=== PATIENT | female | born 1975 | race Caucasian/White ===

== ENCOUNTER 2017-12-24 09:00 | Outpatient (RCR) | payer OTHER | END 2017-12-24 09:30 | disposition home or self-care (01) | LOC: PT 09:00 | DX: S96.112D Strain of muscle and tendon of long extensor muscle of toe at ankle and foot level, left foot, subsequent encounter (principal); S46.011D Strain of muscle(s) and tendon(s) of the rotator cuff of right shoulder, subsequent encounter; M25.552 Pain in left hip; M25.562 Pain in left knee; W01.0XXD Fall on same level from slipping, tripping and stumbling without subsequent striking against object, subsequent encounter ==

== ENCOUNTER → 2018-01-18 | Outpatient (CLI) | payer OTHER ==
[2018-01-18 11:46] LABS: HEMATOCRIT 35.6 % (37.0-47.0); HEMOGLOBIN 11.9 g/dL (12.5-16.0); MEAN CELL VOLUME 84 fl (78-100); MEAN CORPUSCULAR HEMOGLOBIN 28 pg (27-31); MEAN CORPUSCULAR HGB CONC 33 g/dL (33-37); PLATELET COUNT 304 K/mm3 (130-400); RED BLOOD COUNT 4.23 M/mm3 (4.10-5.30); RED CELL DISTRIBUTION WIDTH 13.5 % (11.5-14.5); WHITE BLOOD COUNT 7.3 K/mm3 (4.8-10.8)
[2018-01-18 12:15] LABS: PH-URINE 6.5 (5.0 - 8.0); URINE APPEARANCE CLEAR; URINE BILIRUBIN NEGATIVE (NEGATIVE); URINE COLOR YELLOW; URINE GLUCOSE NEGATIVE (NEGATIVE); URINE KETONE NEGATIVE (NEGATIVE); URINE PROTEIN(semi-quant) TRACE mg/dL (NEGATIVE)
[2018-01-18 12:16] LABS: URINE BLOOD 250 ery/uL (NEGATIVE); URINE LEUKOCYTE ESTERASE NEGATIVE (NEGATIVE); URINE MUCUS PRESENT (NOT PRESENT); URINE NITRATE NEGATIVE (NEGATIVE); URINE UROBILINOGEN NORMAL (NORMAL)
[2018-01-18 12:27] LABS: ALBUMIN 3.5 g/dL (3.5-5.0); BUN/CREATININE RATIO 24.3 (6.0-26.0); CALCIUM 8.4 mg/dL (8.4-10.2); TOTAL BILIRUBIN 0.3 mg/dL (0.2-1.3); TOTAL PROTEIN 7.1 g/dL (6.3-8.2)
[2018-01-18 13:17] LABS: LYMPHOCYTE 25 % (20-51); MONOCYTE 8 % (3-10); NEUTROPHILS 64 % (42-75)
== END ==
LOC: LAB 11:31
PROVIDERS: Nurse Practitioner Family
DX: R60.9 Edema, unspecified (principal); R39.15 Urgency of urination

== ENCOUNTER 2018-05-09 13:30 | Outpatient (RCR) | payer OTHER | END 2018-05-15 | disposition home or self-care (01) | LOC: PT | DX: S92.025D Nondisplaced fracture of anterior process of left calcaneus, subsequent encounter for fracture with routine healing (principal); S86.812D Strain of other muscle(s) and tendon(s) at lower leg level, left leg, subsequent encounter ==

== ENCOUNTER 2018-07-29 11:00 | Outpatient (RCR) | payer OTHER | END 2018-08-15 | disposition home or self-care (01) | LOC: PT | DX: S92.025D Nondisplaced fracture of anterior process of left calcaneus, subsequent encounter for fracture with routine healing (principal); S86.919D Strain of unspecified muscle(s) and tendon(s) at lower leg level, unspecified leg, subsequent encounter; G57.92 Unspecified mononeuropathy of left lower limb ==

== ENCOUNTER 2018-11-11 11:00 | Outpatient (RCR) | payer OTHER | END 2018-11-11 11:30 | disposition home or self-care (01) | LOC: PT 11:00 | DX: G58.8 Other specified mononeuropathies (principal); M72.2 Plantar fascial fibromatosis ==

== ENCOUNTER 2019-06-10 07:41 | Emergency (ER) | payer OTHER ==
[~2019-06-10] VITALS: Ht 170.2 cm; Wt 118.3 kg
[2019-06-10] MEDS ORDERED: NEURONTIN300 M1 PO (08:04)
[2019-06-10] MEDS ORDERED: NEURONTIN300 MG/CAP PO (08:05)
[2019-06-10 08:14] LABS: EOS # 0.1 (0.04-0.40); EOS % 1.6 % (1.0-5.0); HEMATOCRIT 35.5 % (37.0-47.0); LYMPH# 1.6 (1.50-4.00); MEAN CELL VOLUME 85 fl (78-100); MEAN CORPUSCULAR HEMOGLOBIN 29 pg (27-31); MEAN CORPUSCULAR HGB CONC 34 g/dL (33-37); MEAN PLATELET VOLUME 10.8 fl (7.4-10.4); MONO # 0.8 (0.20-0.80); NEU # 4.2 (1.40-6.50); PLATELET COUNT 289 K/mm3 (130-400); RED BLOOD COUNT 4.18 M/mm3 (4.10-5.30); RED CELL DISTRIBUTION WIDTH 13.2 % (11.5-14.5); WHITE BLOOD COUNT 6.7 K/mm3 (4.8-10.8)
[2019-06-10 08:16] LABS: ALBUMIN 3.6 g/dL (3.5-5.0); POTASSIUM 3.9 mmol/L (3.5-5.1); SODIUM 139 mmol/L (136-145)
[2019-06-10 08:17] LABS: CALCIUM 8.3 mg/dL (8.3-10.5)
[2019-06-10 08:18] LABS: GLUCOSE 109 mg/dL (65-105); TOTAL PROTEIN 6.6 g/dL (6.4-8.3)
[2019-06-10 08:19] LABS: CARBON DIOXIDE 22 mmol/L (22-29)
[2019-06-10 08:20] LABS: TOTAL BILIRUBIN 0.8 mg/dL (0.2-1.2); URINE APPEARANCE HAZY; URINE BILIRUBIN NEGATIVE (NEGATIVE); URINE BLOOD 50 ery/uL (NEGATIVE); URINE COLOR YELLOW; URINE GLUCOSE NEGATIVE (NEGATIVE); URINE KETONE 2+ (NEGATIVE); URINE LEUKOCYTE ESTERASE NEGATIVE (NEGATIVE); URINE MUCUS PRESENT (NOT PRESENT); URINE NITRATE NEGATIVE (NEGATIVE); URINE PROTEIN(semi-quant) TRACE mg/dL (NEGATIVE); URINE UROBILINOGEN NORMAL (NORMAL)
[2019-06-10 08:23] LABS: AST-SGOT 13 U/L (5-34)
[2019-06-10 08:25] LABS: ALT/SGPT 15 U/L (0-55)
[2019-06-10 08:28] LABS: ALCOHOL IN-HOUSE < 10 mg/dL (<10)
[2019-06-10 08:50] LABS: TROPONIN-I < 0.03 ng/mL (<0.030)
[2019-06-10 10:37] VITALS: BP 135/84
== END 2019-06-10 10:50 | disposition home or self-care (01) ==
LOC: ED 07:41
PROVIDERS: Nurse Practitioner Primary Care
DX: F43.0 Acute stress reaction (principal)
CPT/HCPCS: J2405; J7030

== ENCOUNTER 2020-08-02 13:00 | Outpatient (RCR) | payer OTHER ==
[~2020-08-02 13:00] MED LIST: NEURONTIN300 M1 PO; NEURONTIN300 MG/CAP PO
== END 2020-08-02 13:30 | disposition home or self-care (01) ==
LOC: PT 13:00
DX: S46.811A Strain of other muscles, fascia and tendons at shoulder and upper arm level, right arm, initial encounter (principal)

== ENCOUNTER → 2022-05-08 | Outpatient (CLI) | payer BC ==
[2022-05-08 14:02] LABS: HEMATOCRIT 39.5 % (37.0-47.0); HEMOGLOBIN 12.9 g/dL (12.5-16.0); MEAN PLATELET VOLUME 10.8 fl (7.4-10.4); RED BLOOD COUNT 4.55 M/mm3 (4.10-5.30); RED CELL DISTRIBUTION WIDTH 12.8 % (11.5-14.5); WHITE BLOOD COUNT 8.6 K/mm3 (4.8-10.8)
[2022-05-08 14:10] LABS: ALBUMIN 3.7 g/dL (3.5-5.0)
[2022-05-08 14:11] LABS: CALCIUM 8.5 mg/dL (8.3-10.5)
[2022-05-08 14:13] LABS: TOTAL PROTEIN 6.9 g/dL (6.4-8.3)
[2022-05-08 14:14] LABS: TOTAL BILIRUBIN 0.4 mg/dL (0.2-1.2)
[2022-05-08 14:26] LABS: URINE APPEARANCE CLEAR; URINE BILIRUBIN NEGATIVE (NEGATIVE); URINE BLOOD 50 ery/uL (NEGATIVE); URINE COLOR YELLOW; URINE GLUCOSE NEGATIVE (NEGATIVE); URINE KETONE NEGATIVE (NEGATIVE); URINE NITRATE NEGATIVE (NEGATIVE); URINE PROTEIN(semi-quant) TRACE (NEGATIVE); URINE UROBILINOGEN NORMAL (NORMAL)
[2022-05-08 14:27] LABS: URINE LEUKOCYTE ESTERASE TRACE (NEGATIVE); URINE MUCUS PRESENT (NOT PRESENT)
== END ==
LOC: LAB 13:41
PROVIDERS: Family Medicine
DX: I10 Essential (primary) hypertension (principal)

== ENCOUNTER → 2022-11-27 | Outpatient (CLI) | payer OTHER | LOC: LAB 17:14 | DX: Z04.1 Encounter for examination and observation following transport accident (principal) ==

== ENCOUNTER 2024-05-23 03:09 | Emergency (ER) | payer BC ==
[~2024-05-23] VITALS: Ht 167.6 cm; Wt 162.3 kg
[2024-05-23] MEDS ORDERED: LISINOPRIL10 MG PO (03:20)
[2024-05-23] MEDS ORDERED: AMOXICILLIN AND1 TA2 PO (03:42)
[2024-05-23] MEDS ORDERED: CIPROFLOX-DEXA7.5 ML OT (03:42)
[2024-05-23 03:47] VITALS: BP 142/88
== END 2024-05-23 03:47 | disposition home or self-care (01) ==
LOC: ED 03:09
DX: H66.92 Otitis media, unspecified, left ear (principal); H72.92 Unspecified perforation of tympanic membrane, left ear